=== PATIENT | male | born 1930 | race Caucasian/White ===

== ENCOUNTER 2018-01-15 17:39 | Inpatient (IN) | payer MEDICARE ==
--- NOTE | ~2018-01-15 | PN ---
PATIENT:CAM MONZON MEDICAL RECORD: [id number] LOCATION:[facility] ADMISSION DATE: 01/15/18 PROGRESS NOTE DATE OF SERVICE: 01/18/2018 SUBJECTIVE: The patient's case was discussed with staff. He has no new complaint. OBJECTIVE: The patient denies intent to harm himself or others. He has required p.r.n. medication because of agitation. ASSESSMENT: No change in diagnoses. PLAN: Current medicines will be maintained. Long-term prognosis is guarded. TRANSINT:[id number] Voice Confirmation ID: [id number] DOCUMENT ID: [id number] RENETTA LINDER MD at 1541 CC: [id number] DICTATION DATE: 01/18/18 1212 COIL TIER: 01/18/18 1719 ADM IN [place] [id number] [place] [address]
--- NOTE | ~2018-01-15 | PN ---
PATIENT:CAM MONZON MEDICAL RECORD: [id number] LOCATION:CHAR[facility] Cr ADMISSION DATE: 01/15/18 PROGRESS NOTE DATE OF SERVICE: 01/28/2018 SUBJECTIVE: The patient's case was discussed with staff. He has no new complaint. OBJECTIVE: The patient is very disorganized and continues to eat and drink poorly. He has limited insight about his situation. ASSESSMENT: No change in diagnoses. PLAN: The patient is going to be placed on hospice care and transferred back to the group home today. Obviously with him being on hospice, his prognosis is not very good. Followup will be through hospice and/or the primary care physician at the group home. TRANSINT:[id number] Voice Confirmation ID: [id number] DOCUMENT ID: [id number] RENETTA LINDER MD at 0858 CC: [id number] DICTATION DATE: 01/28/18 1022 CASTING MACHINE OPERATOR: 01/28/18 1155 DIS IN 01/28/18 [facility] [address] [place] [address]
--- NOTE | ~2018-01-15 | PN ---
PATIENT:CAM MONZON MEDICAL RECORD: [id number] LOCATION:[facility] Prado112 ADMISSION DATE: 01/15/18 PROGRESS NOTE DATE OF SERVICE: 01/27/2018 SUBJECTIVE: The patient's case was discussed with staff. He has no new complaint. OBJECTIVE: The patient is in good behavioral control with limited insight about his condition. He is not eating very well. ASSESSMENT: No change in diagnoses. PLAN: The patient is not doing very well. He is intermittently aggressive. He is not eating adequately. He is not drinking adequately. These ongoing problems have been documented extensively through this record and it is clear that he is in the final stages of a dementia and he is going to be discharged to the assisted today and hospice will follow him to provide comfort care. TRANSINT:[id number] Voice Confirmation ID: [id number] DOCUMENT ID: [id number] RENETTA LINDER MD at 1128 CC: [id number] DICTATION DATE: 01/27/18 1529 DRAW OPERATOR: 01/27/18 1719 ADM IN [facility] [address] [place] [address]
--- NOTE | ~2018-01-15 | PN ---
PATIENT:CAM MONZON MEDICAL RECORD: [id number] LOCATION:[facility] Cr ADMISSION DATE: 01/15/18 PROGRESS NOTE DATE OF SERVICE: 01/22/2018 SUBJECTIVE: The patient's case was discussed with staff. He has no new complaint. OBJECTIVE: The patient denies intent to harm himself or others. He tolerates his medicines well. He has been resistant to care. He still is not eating. We have been able to get some medication into him by putting it into pudding which he likes. He is certainly not progressing. In fact, his condition has probably worsened. With regard to safety, I do not think he is appropriate to be transitioned back to a retirement at this time. I would say that unless adequate nutrition can be delivered to him that his prognosis is exceedingly poor. TRANSINT:[id number] Voice Confirmation ID: [id number] DOCUMENT ID: [id number] RENETTA LINDER MD at 1239 CC: [id number] DICTATION DATE: 01/22/18 1428 SHUTTLELESS LOOM WEAVER: 01/22/18 1826 ADM IN [facility] [address] [place] [address]
--- NOTE | ~2018-01-15 | PSY ---
PATIENT NAME:CAM MONZON MEDICAL RECORD: [id number] : 32 LOCATION:[facility] Zeng ADMISSION DATE: 01/15/18 ACCOUNT: [id number] PSYCHIATRIC EVALUATION DATE OF EVALUATION: 01/16/18 IDENTIFYING DATA: The patient is 87 years old and he is admitted to the hospital on a voluntary basis. CHIEF COMPLAINT: Aggression. HISTORY OF PRESENT ILLNESS: The patient lives in the [facility]. He apparently was aggressive with another resident. He was combative, screaming, yelling, and kicking at doors. He has a known history of dementia and in fact was actually hospitalized here about a year ago. He has no recollection of that. He denies that he would seek to harm himself and actually become somewhat angry when asked about the reasons for being here. 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 Obviously at 87 and in a wheelchair that is just confusion or delusional. PAST MEDICAL HISTORY: Significant for a seizure disorder that is poorly defined. He also has a history of hypertension, cardiac pacemaker placement, hyperlipidemia, and COPD. PAST PSYCHIATRIC HISTORY: Significant for an established diagnosis of dementia and some history of depression, which he cannot give me information about. FAMILY HISTORY: Noncontributory by his report, which I consider to be unreliable. ALLERGIES: LEVAQUIN AND RAPAFLO. CURRENT MEDICATIONS: Include lactobacillus, Norvasc, Cipro, Feosol, Klonopin, Keppra, lisinopril, melatonin, Namenda, Proscar, Seroquel, Singulair, vitamin D3, and Zoloft. SOCIAL HISTORY: The patient is . He does have adult children, who are involved with his care. He has no history of drug or alcohol abuse and apparently worked in the [employer] for many years. MENTAL STATUS EXAMINATION: The patient is awake, alert and oriented to person only. His mood is flat. His affect is constricted. Thought processes are circumstantial. Memory, concentration, and abstraction abilities are moderately impaired, and he denies that he would actively seek to harm himself or others. ASSETS: Supportive family members. LIABILITIES: Limited insight. DIAGNOSTIC IMPRESSION: AXIS I: Senile dementia of the Alzheimer's type with behavioral disturbances. AXIS II: None. AXIS III: Hypertension, COPD, seizure disorder, hyperlipidemia, dysphagia, benign prostatic hypertrophy, chronic insomnia, cardiac pacemaker placement, chronic anemia, and vitamin D deficiency. AXIS IV: Moderate stressors. AXIS V: Global assessment of functioning is 30. PLAN: At this time, the patient will be admitted to the hospital secondary to aggressive behavior at the care home. He will be fully evaluated from both a medical, psychological, and social standpoint. He will be treated with both mood stabilizing and memory enhancing medications as deemed appropriate. His long-term prognosis is guarded. TRANSINT:[id number] Voice Confirmation ID: [id number] DOCUMENT ID: [id number] RENETTA LINDER MD at 1204 CC: [id number] DICTATION DATE: 01/16/181858 ESTATE PLANNING ATTORNEY: 01/16/18 221 ADM IN [facility] [address] [place] [id number]
--- NOTE | ~2018-01-15 | PN ---
PATIENT:CAM MONZON MEDICAL RECORD: [id number] LOCATION:[facility] Cr ADMISSION DATE: 01/15/18 PROGRESS NOTE DATE OF SERVICE: 01/25/2018 SUBJECTIVE: The patient's case was discussed with staff. He has no new complaint. OBJECTIVE: The patient actually ate a little bit better yesterday, it would be about a third of the food that was presented to him. This is inconsistent with long-term survival, but it is a significant improvement. The staff is doing a much better job of giving him food and water and by that I mean, he is taking it more. They have been making almost heroic effort to get nutrition into this man. Once again, if improvement is not forthcoming, it is clear he is going to require hospice care. I will check additional labs today to ensure that he is not becoming dehydrated. TRANSINT:[id number] Voice Confirmation ID: [id number] DOCUMENT ID: [id number] RENETTA LINDER MD at 1555 CC: [id number] DICTATION DATE: 01/25/18 1005 EP TECH: 01/25/18 1058 ADM IN [facility] [address] [place] [address]
--- NOTE | ~2018-01-15 | PN ---
PATIENT:CAM MONZON MEDICAL RECORD: [id number] LOCATION:[facility] PradoCatherine ADMISSION DATE: 01/15/18 PROGRESS NOTE DATE OF SERVICE: 01/23/2018 SUBJECTIVE: The patient's case was discussed with staff. He has no new complaint. OBJECTIVE: The patient is in good behavioral control with limited insight about his condition. He generally tolerates his medicines well. ASSESSMENT: No change in diagnoses. PLAN: The patient is still not eating. He is not showing evidence of significant distress currently, but I am going to order another set of labs. His prognosis is exceedingly poor. He is spitting out food when we tried to feed him and refuses to drink. His dementia is clearly advanced and I have discussed hospice with the treatment team and they have discussed it with the family and I think that this is going to be a reasonable placement for him given his grave condition and the probability that he is not going to improve significantly. TRANSINT:[id number] Voice Confirmation ID: [id number] DOCUMENT ID: [id number] RENETTA LINDER MD at 1101 CC: [id number] DICTATION DATE: 01/23/18 1515 CARD SORTER: 01/23/18 2343 ADM IN [place] [id number] [place] [address]
--- NOTE | ~2018-01-15 | PN ---
PATIENT:CAM MONZON MEDICAL RECORD: [id number] LOCATION:[facility]adoCatherine ADMISSION DATE: 01/15/18 PROGRESS NOTE DATE OF SERVICE: 01/20/2018 SUBJECTIVE: The patient's case was discussed with staff. He has no new complaint. OBJECTIVE: The patient is very disorganized and at times quite agitated. ASSESSMENT: No change in diagnoses. PLAN: The patient is not eating or drinking adequately. I am going to order some baseline labs to determine how dehydrated he possibly could be. He will also be ordered IM Geodon in case he becomes agitated again. If efforts to improve his oral intake are unsuccessful, he is likely to require hospice placement. TRANSINT:[id number] Voice Confirmation ID: [id number] DOCUMENT ID: [id number] RENETTA LINDER MD at 1142 CC: [id number] DICTATION DATE: 01/20/18 1211 WARD MAID: 01/20/18 1220 ADM IN [place] [id number] [place] [address]
--- NOTE | ~2018-01-15 | PN ---
PATIENT:CAM MONZON MEDICAL RECORD: [id number] LOCATION:[facility] PradoCatherine ADMISSION DATE: 01/15/18 PROGRESS NOTE DATE OF SERVICE: 01/24/2018 SUBJECTIVE: The patient's case was discussed with staff. He has no new complaint. OBJECTIVE: The patient denies intent to harm himself or others. He tolerates his medicines well. Eye contact is fair. ASSESSMENT: No change in diagnoses. PLAN: The patient is not eating or sleeping well at all. His prognosis is exceedingly poor. I anticipate that he will simply have to go to hospice. His sodium is elevated at 149 and he has an elevated BUN of 37. Efforts are being made to improve his fluid intake. TRANSINT:[id number] Voice Confirmation ID: [id number] DOCUMENT ID: [id number] RENETTA LINDER MD at 0924 CC: [id number] DICTATION DATE: 01/24/18 1114 ORAL AND MAXILLOFACIAL SURGERY: 01/24/18 1208 ADM IN [place] [address] [place] [id number]
--- NOTE | ~2018-01-15 | DS ---
PATIENT:CAM MONZON :32 MEDICAL RECORD: [id number] DISCHARGE SUMMARY ADMISSION DATE: 01/15/18 DISCHARGE DATE: 01/28/18 IDENTIFYING DATA: The patient is 87 years old and he is admitted to the hospital on a voluntary basis because of aggression. The patient lives in the [facility] and apparently was aggressive with another resident there. He was combative, screaming, yelling and kicking at the doors. He has a known history of dementia and was hospitalized here about a year ago for similar behaviors. He has no recollection of what occurred at the shelter. He denies that he would seek to harm himself or others. HOSPITAL COURSE: The patient was admitted to the hospital and fully evaluated from both a medical, psychological, and social standpoint. The patient was treated with both memory enhancing and mood stabilizing medications. He showed significant improvement in his behavior, but his cognition worsened and he stopped eating and drinking. Efforts to encourage him to do so were undertaken and every possible means to improve his oral intake was attempted without success. He was subsequently discharged back to the shelter on hospice care. DISCHARGE DIAGNOSES: AXIS I: Senile dementia of the Alzheimer's type with behavioral disturbances. AXIS II: None. AXIS III: Hypertension, COPD, seizure disorder, hyperlipidemia, dysphagia, benign prostatic hypertrophy, chronic insomnia, cardiac pacemaker placement, chronic anemia and vitamin D deficiency. AXIS IV: Moderate stressors. AXIS V: Global assessment of functioning is 25. PLAN: At the time of discharge, the patient was not taking adequate nutrition. He was not combative and did not represent a direct risk to others or himself through his behaviors, but the prognosis must be considered quite poor given the fact that he will not eat or drink adequately. Followup will be with the hospice program and obviously his prognosis is poor. TRANSINT:[id number] Voice Confirmation ID: [id number] DOCUMENT ID: [id number] RENETTA LINDER MD CC: [id number] DICTATION DATE: 01/30/18 1221 HAND RIGGER: 01/30/18 2347 DIS IN 01/28/18 [address] [place] [address]
--- NOTE | ~2018-01-15 | PN ---
PATIENT:CAM MONZON MEDICAL RECORD: [id number] LOCATION:[facility] PradoCatherine ADMISSION DATE: 01/15/18 PROGRESS NOTE DATE OF SERVICE: 01/26/2018 SUBJECTIVE: The patient's case was discussed with staff. He has no new complaint. OBJECTIVE: The patient is in good behavioral control with limited insight about his condition. He generally tolerates his medicines well. He is not eating adequately. In fact, he is at very high risk of completely decompensating metabolically. I think hospice is going to accept him and he did require some p.r.n. medicine because of agitation today. I anticipate that he will be transferred to hospice care soon. TRANSINT:[id number] Voice Confirmation ID: [id number] DOCUMENT ID: [id number] RENETTA LINDER MD at 1443 CC: [id number] DICTATION DATE: 01/26/18 1623 SKIAGRAPHER: 01/26/18 1856 ADM IN [place] [id number] [place] [address]
--- NOTE | ~2018-01-15 | PN ---
PATIENT:CAM MONZON MEDICAL RECORD: [id number] LOCATION:[facility] AdamLuizCatherine ADMISSION DATE: 01/15/18 PROGRESS NOTE DATE OF SERVICE: 01/21/2018 SUBJECTIVE: The patient's case was discussed with staff. He has no new complaint. OBJECTIVE: The patient is eating a little bit better today. He still has pretty limited insight about his situation. He is clearly dehydrated with a BUN of 32. His creatinine is only 1.2 and his sodium is normal at 145. I think that was probably getting more nutrition and was being documented. ASSESSMENT: No change in diagnoses. PLAN: Current medicines have been reviewed and will be maintained. I am going to start the patient on B12 injections. TRANSINT:[id number] Voice Confirmation ID: [id number] DOCUMENT ID: [id number] RENETTA LINDER MD at 1018 CC: [id number] DICTATION DATE: 01/21/18 1252 LINK WIRE FABRIC MACHINE OPERATOR: 01/21/18 1441 ADM IN [place] [id number] [place] [address]
--- NOTE | ~2018-01-15 | PN ---
PATIENT:CAM MONZON MEDICAL RECORD: [id number] LOCATION:[facility] PradoCatherine ADMISSION DATE: 01/15/18 PROGRESS NOTE DATE OF SERVICE: 01/19/2018 SUBJECTIVE: The patient's case was discussed with staff. He has no new complaint. OBJECTIVE: The patient is not eating well. He is not taking his medications very consistently. He has fairly limited insight about his situation. ASSESSMENT: No change in diagnoses. PLAN: Current medicines have been reviewed and will be maintained. I am going to check a Depakote level, which will give me something of an indication of his compliance. I will also check some baseline labs. TRANSINT:[id number] Voice Confirmation ID: [id number] DOCUMENT ID: [id number] RENETTA LINDER MD at 1147 CC: [id number] DICTATION DATE: 01/19/18 1636 AUTOMOTIVE PARTS INTERPRETER: 01/20/18 0034 ADM IN [place] [id number] [place] [address]
--- NOTE | ~2018-01-15 | PN ---
PATIENT:CAM MONZON MEDICAL RECORD: [id number] LOCATION:[facility] PradoCatherine ADMISSION DATE: 01/15/18 PROGRESS NOTE DATE OF SERVICE: 01/17/2018 SUBJECTIVE: The patient's case was discussed with staff. He has no new complaint. OBJECTIVE: The patient required some p.r.n. medication yesterday because of agitation. He has fairly limited insight about his situation. He is cursing and striking out at others. ASSESSMENT: No change in diagnoses. PLAN: Current medicines have been reviewed. I am going to discontinue his Seroquel as it appears to be a treatment failure. I am going to start him on Geodon at a dose of 20 mg daily. TRANSINT:[id number] Voice Confirmation ID: [id number] DOCUMENT ID: [id number] RENETTA LINDER MD at 1052 CC: [id number] DICTATION DATE: 01/17/18 1219 CRISIS COUNSELOR: 01/17/18 1516 ADM IN [place] [address] [place] [address]
[2018-01-15] MEDS ORDERED: FLORANEX / LACT1 TAB PO (19:06)
[2018-01-15] MEDS ORDERED: NORVASC5 MG PO (19:06)
[2018-01-15] MEDS ORDERED: CIPRO500 MG PO (19:07)
[2018-01-15] MEDS ORDERED: FERROUS SULFAT325 MG PO (19:08)
[2018-01-15] MEDS ORDERED: KLONOPIN0.5 MG PO (19:08)
[2018-01-15] MEDS ORDERED: LISINOPRIL10 MG PO (19:09)
[2018-01-15] MEDS ORDERED: KEPPRA750 MG PO (19:09)
[2018-01-15] MEDS ORDERED: MELATONIN 3 MG1 TAB PO (19:10)
[2018-01-15] MEDS ORDERED: NAMENDA5 MG PO (19:11)
[2018-01-15] MEDS ORDERED: PRED FORTE5 ML LEFT EYE (19:12)
[2018-01-15] MEDS ORDERED: SINGULAIR10 MG PO (19:13)
[2018-01-15] MEDS ORDERED: SEROQUEL25 MG PO (19:13)
[2018-01-15] MEDS ORDERED: PROSCAR5 MG PO (19:13)
[2018-01-15] MEDS ORDERED: VITAMIN D5000 UNIT PO (19:14)
[2018-01-15] MEDS ORDERED: ZOLOFT100 MG PO (19:15)
[2018-01-15 20:06] VITALS: BP 121/78
[2018-01-16 03:21] VITALS: BP 121/71; BMI 22.2
[2018-01-16 06:45] LABS: APPEARANCE CLEAR (CLEAR); COLOR YELLOW (YELLOW)
[2018-01-16 06:46] LABS: AMORPHOUS SEDIMENT <1+ /lpf (NONE SEEN); BILIRUBIN NEGATIVE (NEGATIVE); GLUCOSE NEGATIVE (NEGATIVE); KETONE NEGATIVE (NEGATIVE); NITRITE NEGATIVE (NEGATIVE); PROTEIN NEGATIVE (NEGATIVE); RED CELLS - URINE OCC /hpf (0-5); SPECIFIC GRAVITY 1.015 (1.005-1.020); UROBILINOGEN NORMAL (NORMAL); WHITE CELLS - URINE 0-5 /hpf (0-5)
[2018-01-16 08:33] VITALS: BMI 22.3
[2018-01-16 08:33] LABS: BASOPHILS 0.5 % (0-2); EOSINOPHILS 2.6 % (0-7); HEMATOCRIT 31.1 % (42.0-54.0); HEMOGLOBIN 9.3 g/dL (13.5-17.5); IMMATURE GRANULOCYTES 0.2 % (0-5); LYMPHOCYTES 22.7 % (15-50); MCH 20.5 pg (26.0-34.0); MCHC 29.9 g/dL (31.0-37.0); MCV 68.5 fL (80.0-100.0); MEAN PLATELET VOLUME 8.8 fL (7.4-10.4); MONOCYTES 13.2 % (2-11); NEUTROPHILS 60.8 % (40-80); RBC 4.54 10x6/uL (4.20-6.10); RDW 19.6 % (11.5-14.5); WBC 8.4 10x3/uL (4.8-10.8)
[2018-01-16 08:38] LABS: PLATELET COUNT 301 10x3/uL (130-400)
[2018-01-16 09:06] LABS: ALBUMIN 3.3 g/dL (3.4-5.0); ANION GAP 16.4 mmol/L (8-16); BILIRUBIN - TOTAL 0.22 mg/dL (0.2-1.3); CALCIUM 9.1 mg/dL (8.5-10.1); CARBON DIOXIDE 24.9 mmol/L (21.0-32.0); CHOL - HDL RATIO 4.8 ratio (2.3-4.9); CREATININE - SERUM 1.1 mg/dL (0.6-1.3); LDL-HDL RATIO 3.3 ratio (1.5-3.5); POTASSIUM - SERUM 4.3 mmol/L (3.5-5.1); PROTEIN - SERUM 7.1 g/dL (6.4-8.2); THYROID STIMULATING HORMONE 4.16 uIU/mL (0.36-3.74)
[2018-01-16 09:10] VITALS: BP 122/72
[2018-01-16 12:48] VITALS: Wt 64.4 kg
[2018-01-16 19:40] VITALS: BP 122/72
[2018-01-17 07:18] LABS: RAPID PLASMA REAGIN Non Reactive (Non Reactive)
[2018-01-17 11:13] LABS: FOLATE (FOLIC ACID) - SERUM 5.4 ng/mL (>3.0)
[2018-01-17 12:12] LABS: VITAMIN D 25 HYDROXY 38.5 ng/mL (30.0-100.0)
[2018-01-18 20:31] VITALS: BP 108/66
[2018-01-19 07:00] VITALS: BP 118/96
[2018-01-19 20:20] VITALS: BP 122/65
[2018-01-20 07:00] VITALS: BP 136/59
[2018-01-20 14:16] LABS: BASOPHILS 0.5 % (0-2); EOSINOPHILS 2.1 % (0-7); HEMATOCRIT 30.1 % (42.0-54.0); IMMATURE GRANULOCYTES 0.2 % (0-5); LYMPHOCYTES 14.2 % (15-50); MCH 20.6 pg (26.0-34.0); MCHC 29.9 g/dL (31.0-37.0); MEAN PLATELET VOLUME 8.6 fL (7.4-10.4); MONOCYTES 12.7 % (2-11); NEUTROPHILS 70.3 % (40-80); PLATELET COUNT 327 10x3/uL (130-400); RBC 4.36 10x6/uL (4.20-6.10); WBC 8.1 10x3/uL (4.8-10.8)
[2018-01-20 15:25] LABS: ANION GAP 16.2 mmol/L (8-16); BILIRUBIN - TOTAL 0.18 mg/dL (0.2-1.3); CALCIUM 9.3 mg/dL (8.5-10.1); CREATININE - SERUM 1.2 mg/dL (0.6-1.3); POTASSIUM - SERUM 4.2 mmol/L (3.5-5.1); PROTEIN - SERUM 7.1 g/dL (6.4-8.2)
[2018-01-20 20:00] VITALS: BP 141/81
[2018-01-21 09:37] VITALS: BP 155/80
[2018-01-22 09:26] VITALS: BP 153/71
[2018-01-22 19:25] VITALS: BP 120/66
[2018-01-23 09:58] VITALS: BP 110/67
[2018-01-23 17:02] LABS: BASOPHILS 0.5 % (0-2); EOSINOPHILS 2.2 % (0-7); IMMATURE GRANULOCYTES 0.1 % (0-5); LYMPHOCYTES 21.6 % (15-50); MCH 20.8 pg (26.0-34.0); MCHC 30.3 g/dL (31.0-37.0); MCV 68.8 fL (80.0-100.0); MEAN PLATELET VOLUME 8.8 fL (7.4-10.4); MONOCYTES 12.5 % (2-11); NEUTROPHILS 63.1 % (40-80); PLATELET COUNT 362 10x3/uL (130-400); RDW 20.3 % (11.5-14.5); WBC 8.1 10x3/uL (4.8-10.8)
[2018-01-23 17:18] LABS: ALBUMIN 3.2 g/dL (3.4-5.0); ANION GAP 16.7 mmol/L (8-16); BILIRUBIN - TOTAL 0.3 mg/dL (0.2-1.3); CALCIUM 9.4 mg/dL (8.5-10.1); CARBON DIOXIDE 24.1 mmol/L (21.0-32.0); CREATININE - SERUM 1.1 mg/dL (0.6-1.3); POTASSIUM - SERUM 3.8 mmol/L (3.5-5.1); PROTEIN - SERUM 6.7 g/dL (6.4-8.2)
[2018-01-23 20:24] VITALS: BP 130/90
[2018-01-24 08:00] VITALS: BP 119/68
[2018-01-24 19:39] VITALS: BP 128/76
[2018-01-25 15:12] LABS: CALC OSMOLALITY 302 mosm/kg (275-300); CALCIUM 8.7 mg/dL (8.5-10.1); CARBON DIOXIDE 24.7 mmol/L (21.0-32.0); CHLORIDE - SERUM 112 mmol/L (98-107); GLUCOSE 115 mg/dL (74-106); POTASSIUM - SERUM 3.4 mmol/L (3.5-5.1); SODIUM 148 mmol/L (136-145); UREA NITROGEN 34 mg/dL (7-18); eGFR NON AFRICAN AMERICAN 75 mL/min (90-120)
[2018-01-25 20:41] VITALS: BP 134/61
[2018-01-26 08:00] VITALS: BP 128/64
[2018-01-26 19:33] VITALS: BP 124/73
[2018-01-27 08:00] VITALS: BP 109/57
[2018-01-27] MEDS ORDERED: GEODON20 MG PO (15:31)
[2018-01-27] MEDS ORDERED: VITAMIN B-121000 MCG PO (15:32)
[2018-01-27 20:04] VITALS: BP 121/66
[2018-01-28 08:00] VITALS: BP 123/66
== END 2018-01-28 10:15 | DRG 57 ==
LOC: D.PSYCH 17:39
PROVIDERS: Psychiatry & Neurology Psychiatry
DX: G30.1 Alzheimer's disease with late onset (principal); F02.81 Dementia in other diseases classified elsewhere, unspecified severity, with behavioral disturbance; I10 Essential (primary) hypertension; J44.9 Chronic obstructive pulmonary disease, unspecified; G40.909 Epilepsy, unspecified, not intractable, without status epilepticus; E78.5 Hyperlipidemia, unspecified; D64.9 Anemia, unspecified; E55.9 Vitamin D deficiency, unspecified; R13.10 Dysphagia, unspecified; N40.0 Benign prostatic hyperplasia without lower urinary tract symptoms; G47.00 Insomnia, unspecified; Z95.0 Presence of cardiac pacemaker; Z74.09 Other reduced mobility

== ENCOUNTER 2018-03-25 13:25 | Emergency (ER) | payer MEDICARE ==
[~2018-03-25] VITALS: Ht 180.3 cm; Wt 75.0 kg
[~2018-03-25 13:25] MED LIST: CIPRO500 MG PO; FERROUS SULFAT325 MG PO; FLORANEX / LACT1 TAB PO; GEODON20 MG PO; KEPPRA750 MG PO; KLONOPIN0.5 MG PO; LISINOPRIL10 MG PO; MELATONIN 3 MG1 TAB PO; NAMENDA5 MG PO; NORVASC5 MG PO; PRED FORTE5 ML LEFT EYE; PROSCAR5 MG PO; SEROQUEL25 MG PO; SINGULAIR10 MG PO; VITAMIN B-121000 MCG PO; VITAMIN D5000 UNIT PO; ZOLOFT100 MG PO
[2018-03-25 13:30] VITALS: Ht 180.3 cm; Wt 75.0 kg
[2018-03-25 17:48] VITALS: BP 126/70
== END 2018-03-25 17:48 ==
LOC: D.ER 13:25
DX: R07.81 Pleurodynia (principal); W18.30XA Fall on same level, unspecified, initial encounter; Y93.89 Activity, other specified; Y92.129 Unspecified place in nursing home as the place of occurrence of the external cause